=== PATIENT | male | born 2000 | race African-American/Black ===

== ENCOUNTER → 2022-07-15 | Outpatient (REF) | payer OTHER ==
[2022-07-15 18:15] LABS: GC DNA AMPLIFICATION NEGATIVE (NEGATIVE)
== END ==
LOC: M LAB REF 16:19
PROVIDERS: ATTEND Physician Assistant
DX: Z20.2 Contact with and (suspected) exposure to infections with a predominantly sexual mode of transmission (principal)

== ENCOUNTER 2024-04-08 06:40 | Emergency (ER) | payer OTHER ==
[~2024-04-08] VITALS: Ht 172.7 cm; Wt 115.2 kg
[2024-04-08] MEDS ORDERED: IBUP-1022 PO (09:11)
[2024-04-08] MEDS: NS (Normal Saline) 0.9% 1,000 ML IV ONE (10:22)
[2024-04-08] MEDS: diphenhydrAMINE 50MG/ML VIAL IV ONE (10:22)
[2024-04-08] MEDS: KETOROLAC 30 MG/ML 1ML VIAL IV ONE (10:23)
[2024-04-08] MEDS: ACETAMINOPHEN 500 MG TAB PO ONE (10:24)
[2024-04-08] MEDS: METOCLOPRAMIDE INJ 10MG/2ML VIAL IV ONE (10:26)
[2024-04-08] MEDS ORDERED: RIZA10TA66 PO (11:42)
[2024-04-08 11:55] VITALS: BP 133/53; TEMP 97.9; O2SAT 99
== END 2024-04-08 11:54 | disposition home or self-care (01) ==
LOC: M ED 06:40
DX: G43.909 Migraine, unspecified, not intractable, without status migrainosus (principal); F32.A Depression, unspecified; Z79.899 Other long term (current) drug therapy; Z79.1 Long term (current) use of non-steroidal anti-inflammatories (NSAID)
CPT/HCPCS: 70450; 96361; 96374; 96375; 99284; J1200; J1885; J2765

== ENCOUNTER 2024-04-28 03:25 | Emergency (ER) | payer OTHER ==
[~2024-04-28] VITALS: Ht 172.7 cm; Wt 111.4 kg
[~2024-04-28 03:25] MED LIST: IBUP-1022 PO; RIZA10TA66 PO
[2024-04-28 03:27] VITALS: BP 125/60; TEMP 98; O2SAT 100
[2024-04-28 04:12] LABS: HEMATOCRIT 45.8 % (42.0-52.0); HEMOGLOBIN 15.6 g/dl (13.5-17.5); MEAN CORPUSCULAR HEMOGLOBIN 29.8 pg (27.0-33.0); MEAN CORPUSCULAR HGB CONC 34.1 g/dl (32.0-36.5); MEAN CORPUSCULAR VOLUME 87.4 fl (80.0-96.0); PLATELET COUNT, AUTOMATED 264 10^3/uL (150-450); RED BLOOD COUNT 5.24 10^6/uL (4.30-6.10); WHITE BLOOD COUNT 8.3 10^3/uL (4.0-10.0)
[2024-04-28 04:37] LABS: AMPHETAMINES LEVEL URINE NEGATIVE (NEGATIVE); BARBITURATES URINE NEGATIVE (NEGATIVE); BENZODIAZEPINES URINE NEGATIVE (NEGATIVE); CANNABINOIDS URINE NEGATIVE (NEGATIVE); COCAINE METABOLITE URINE NEGATIVE (NEGATIVE); METHADONE URINE NEGATIVE (NEGATIVE); OPIATES URINE NEGATIVE (NEGATIVE); PHENCYCLIDINE URINE NEGATIVE (NEGATIVE)
[2024-04-28 04:39] LABS: ETHYL ALCOHOL (ETHANOL) 0.003 % (0.000-0.010)
[2024-04-28 04:41] LABS: ALBUMIN 4.4 G/DL (3.2-5.2); ALKALINE PHOSPHATASE 56 U/L (40-129); ALT/SGPT 24 U/L (7.0-40); AST/SGOT 18 U/L (<34); BILIRUBIN,DIRECT 0.2 MG/DL (<0.4); BILIRUBIN,TOTAL 0.5 MG/DL (0.3-1.2); BLOOD UREA NITROGEN 15 MG/DL (9-23); CALCIUM LEVEL 9.5 MG/DL (8.5-10.1); CARBON DIOXIDE LEVEL 29 MMOL/L (20-31); CHLORIDE LEVEL 105 MMOL/L (98-107); CREATININE FOR GFR 0.97 MG/DL (0.70-1.30); GLOMERULAR FILTRATION RATE > 60.0 (>60); GLUCOSE, FASTING 83 MG/DL (60-100); POTASSIUM SERUM 3.7 MMOL/L (3.5-5.1); SALICYLATE LEVEL < 3.0 MG/DL (<30); SODIUM LEVEL 142 MMOL/L (136-145); TOTAL PROTEIN 7.5 G/DL (5.7-8.2)
[2024-04-28 04:44] LABS: THYROID STIMULATING HORMONE 3.008 uIU/ML (0.55-4.78)
[2024-04-28] MEDS ORDERED: RIZA10TA2 PO (06:12)
[2024-04-28] MEDS ORDERED: FLUO40CA PO (06:12)
[2024-04-28] MEDS ORDERED: HOME MED LIST COMPLETE! XX SCH (06:15)
[2024-04-28] MEDS ORDERED: RIZATRIPTAN BENZOATE 10 MG TAB PO PRN (07:40)
[2024-04-28] MEDS: FLUoxetine 20MG CAP PO SCH (10:44)
== END 2024-04-28 15:04 | disposition home or self-care (01) ==
LOC: M ED 03:25
DX: F32.A Depression, unspecified (principal); Z79.899 Other long term (current) drug therapy